=== PATIENT | male | born 1940 | race Caucasian/White ===

== ENCOUNTER → 2021-07-19 12:22 | Outpatient (CLI) | payer MEDICARE, SELFPAY ==
--- NOTE | 2021-07-19 12:29 | XR_ITS ---
FINAL REPORT CLINICAL HISTORY: CAD FINDINGS: Two views of the chest were obtained. There is postoperative change in the right thorax. The heart size and pulmonary vascularity are within normal limits. The mediastinum is normal. There is mild atelectasis or scarring in the right lung base. There is no pneumothorax. The bony thorax is intact. IMPRESSION: Mild right base atelectasis or scarring. Reviewed, Interpreted and Dictated by Terry Issa III, MD Transcribed by Grover Arango Authenticated by Terry Issa III, MD on 07/19/2021 01:41:57 PM [facility]
== END ==
PROVIDERS: PCP Family Medicine; Visit Provider Internal Medicine
DX: E11.9 Type 2 diabetes mellitus without complications (principal); E78.5 Hyperlipidemia, unspecified; I10 Essential (primary) hypertension; I25.10 Atherosclerotic heart disease of native coronary artery without angina pectoris; R00.2 Palpitations; Z98.61 Coronary angioplasty status
CPT/HCPCS: 71046

== ENCOUNTER → 2021-07-27 10:45 | Outpatient (CLI) | payer MEDICARE, SELFPAY ==
--- NOTE | 2021-07-27 10:48 | CA_ITS ---
FINAL REPORT TECHNIQUE: Color Doppler, duplex Doppler and marti scale sonography of the bilateral neck arterial vasculature was performed. Velocities were measured in the carotid arteries. Stenosis evaluation based on the validated velocity criteria. CLINICAL HISTORY: LT CARTOID BRUIT,DM,HTN,HLD FINDINGS: The peak systolic velocity of the right common carotid artery is 90 cm/s. The peak systolic velocity of the right internal carotid artery is 126 cm/s and end diastolic velocity 34 cm/s. The ICA/CCA ratio is 1.4. A mild amount of plaque is present. The right external carotid artery is patent. The right vertebral artery is patent with antegrade flow. The peak systolic velocity of the left common carotid artery is 88 cm/s. The peak systolic velocity of the left internal carotid artery is 199 cm/s and end diastolic velocity 57 cm/s. The ICA/CCA ratio is 2.4. A moderate amount of plaque is present. The left external carotid artery is patent.The left vertebral artery is patent with antegrade flow. IMPRESSION: Less than 50% right carotid stenosis. 50-69% left carotid stenosis. Bilateral patent vertebral arteries with antegrade flow. If indicated, CTA or MRA could further evaluate. Reviewed, Interpreted and Dictated by Terry Issa III, MD Transcribed by Jyothi Eng Authenticated by Terry Issa III, MD on 07/27/2021 12:31:42 PM [facility]
== END ==
PROVIDERS: PCP Family Medicine; Visit Provider Physician Assistant
DX: E11.9 Type 2 diabetes mellitus without complications (principal); E78.5 Hyperlipidemia, unspecified; I10 Essential (primary) hypertension; I25.10 Atherosclerotic heart disease of native coronary artery without angina pectoris; R00.2 Palpitations; Z98.61 Coronary angioplasty status; R09.89 Other specified symptoms and signs involving the circulatory and respiratory systems
CPT/HCPCS: 78452; 93017; 93306; 93880; A9502; J2785

== ENCOUNTER → 2022-02-06 13:10 | Outpatient (CLI) | payer MEDICARE, SELFPAY ==
--- NOTE | 2022-02-06 13:15 | CA_ITS ---
FINAL REPORT CLINICAL HISTORY: [place], Dizziness FINDINGS: An ultrasound of the carotid arteries was performed. Duplex Doppler evaluation with spectral analysis was performed. The peak systolic velocity of the right common carotid artery is 118 cm/s. The peak systolic velocity of the right internal carotid artery is 137 cm/s and end diastolic velocity 34 cm/s. A moderate amount of plaque is present. The right external carotid artery is patent. The right vertebral artery is patent with antegrade flow. ICA/CCA ratio: 1.48 The peak systolic velocity of the left common carotid artery is 99 cm/s. The peak systolic velocity of the left internal carotid artery is 274 cm/s and end diastolic velocity 51 cm/s. A moderate amount of plaque is present. The left external carotid artery is patent. The left vertebral artery is patent with antegrade flow. ICA/CCA ratio: 2.77 Bilateral patent vertebral arteries with antegrade flow. IMPRESSION: Less than 50% right carotid stenosis. 50-69% left carotid stenosis. Recommend CTA for further evaluation. Reviewed, Interpreted and Dictated by Antolin Elkins MD Transcribed by Grover Arango Authenticated and [facility]
== END ==
PROVIDERS: PCP Family Medicine; Visit Provider Internal Medicine
DX: I65.23 Occlusion and stenosis of bilateral carotid arteries (principal)
CPT/HCPCS: 93880

== ENCOUNTER 2025-02-24 13:32 | Outpatient (CLI) | payer MEDICARE, SELFPAY ==
--- NOTE | 2025-02-24 14:15 | CA_ITS ---
FINAL REPORT TECHNIQUE: Baker scale, color and spectral doppler images of the bilateral carotid arteries were obtained. CLINICAL HISTORY: YAS, HTN,EXSMOKER, DM FINDINGS: The peak systolic velocity of the right common carotid artery is 83 cm/s. The peak systolic velocity of the right internal carotid artery is 109 cm/s and end diastolic velocity 18 cm/s. The ICA/CCA ratio is 1.3. A mild to moderate amount of plaque is present. The right external carotid artery is patent. The right vertebral artery is patent with antegrade flow. The peak systolic velocity of the left common carotid artery is 112 cm/s. The peak systolic velocity of the left internal carotid artery is 222 cm/s and end diastolic velocity 45 cm/s. The ICA/CCA ratio is 2.0. A mild to moderate amount of plaque is present. The left external carotid artery is patent. The left vertebral artery is patent with antegrade flow. IMPRESSION: Less than 50% right carotid stenoses. 50 to 69% left carotid stenosis. If indicated, CTA or MRA could further evaluate. Reviewed, Interpreted and Dictated by Radha Contreras MD Transcribed by Karina Restrepo Authenticated and [facility]
== END 2025-02-24 23:59 | disposition home or self-care (01) ==
LOC: RT 13:32
PROVIDERS: PCP Family Medicine; Visit Provider Internal Medicine
DX: I65.23 Occlusion and stenosis of bilateral carotid arteries (principal); I25.10 Atherosclerotic heart disease of native coronary artery without angina pectoris; I10 Essential (primary) hypertension; E78.5 Hyperlipidemia, unspecified; Z87.891 Personal history of nicotine dependence; E11.9 Type 2 diabetes mellitus without complications
CPT/HCPCS: 93880